=== PATIENT | female | born 1935 | race Caucasian/White ===

== ENCOUNTER 2021-06-09 08:46 | Emergency (ER) | payer MEDICARE ==
[~2021-06-09 08:46] MED LIST: HYDROCODON-ACE1 EAC6 PO
[2021-06-11] MEDS ORDERED: HCTZ12.5 MG PO (11:43)
[2021-06-11] MEDS ORDERED: COZAAR50 MG PO (11:43)
[2021-06-11] MEDS ORDERED: PLAVIX75 MG PO (11:44)
[2021-06-11] MEDS ORDERED: ASPIRIN EC81 MG PO (11:44)
[2021-06-11] MEDS ORDERED: PHOSLO667 MG PO (11:45)
[2021-06-11] MEDS ORDERED: MAXIMUM DAILY1 EAC1 PO (11:45)
[2021-06-11] MEDS ORDERED: [UNRECOGNIZED DRUG - OTHER] (11:47)
[2021-06-11] MEDS ORDERED: HYDREA500 MG PO (11:48)
[2021-06-11] MEDS ORDERED: XYZAL2.5 MG/5 M PO (11:48)
[2021-06-11] MEDS ORDERED: IBUPROFEN400 MG PO (11:49)
[2021-06-11] MEDS ORDERED: VICODIN 10/3251 EACH PO (11:49)
[2021-06-11] MEDS ORDERED: SENOKOT8.6 MG PO (11:50)
== END 2021-06-09 12:07 | disposition home or self-care (01) ==
LOC: FER 08:46
DX: G89.11 Acute pain due to trauma (principal)

== ENCOUNTER → 2021-06-11 | Day surgery (SDC) | payer MEDICARE ==
[~2021-06-11] VITALS: Ht 162.6 cm; Wt 61.2 kg
[~2021-06-11] MED LIST changes: +ASPIRIN EC81 MG PO; +COZAAR50 MG PO; +HCTZ12.5 MG PO; +HYDREA500 MG PO; +IBUPROFEN400 MG PO; +MAXIMUM DAILY1 EAC1 PO; +PHOSLO667 MG PO; +PLAVIX75 MG PO; +SENOKOT8.6 MG PO; +VICODIN 10/3251 EACH PO; +XYZAL2.5 MG/5 M PO; +[UNRECOGNIZED DRUG - OTHER]
[2021-06-11 12:09] LABS: HCT 32.3 % (37.0-47.0); HGB 10.6 g/dl (12.5-16.0); MCH 34.4 pg (25.0-31.0); MCHC 32.8 g/dL (32.0-36.0); MCV 104.9 fL (78.0-100.0); RBC 3.08 M/uL (4.20-5.40); RDW 13.8 % (11.5-14.0); WBC 8.6 K/uL (4.0-10.5)
[2021-06-11 14:16] LABS: ALBUMIN 2.3 g/dL (3.4-5.0); BILIRUBIN - TOTAL 0.5 mg/dL (0.2-1.0); BUN/CREAT RATIO (CALC) 32.8 RATIO; CREATININE 0.61 mg/dL (0.51-0.95); GLOBULIN (CALCULATION) 2.6 g/dL; POTASSIUM 3.5 mmol/L (3.5-5.1); TOTAL PROTEIN 4.9 g/dL (6.4-8.2)
== END | disposition home or self-care (01) ==
LOC: FAS 11:26
PROVIDERS: Legal Medicine
DX: S52.572A Other intraarticular fracture of lower end of left radius, initial encounter for closed fracture (principal); S52.202A Unspecified fracture of shaft of left ulna, initial encounter for closed fracture; G89.18 Other acute postprocedural pain; W19.XXXA Unspecified fall, initial encounter; I10 Essential (primary) hypertension; E78.5 Hyperlipidemia, unspecified; M19.90 Unspecified osteoarthritis, unspecified site; H91.92 Unspecified hearing loss, left ear; F17.200 Nicotine dependence, unspecified, uncomplicated; Z86.73 Personal history of transient ischemic attack (TIA), and cerebral infarction without residual deficits; Z20.822 Contact with and (suspected) exposure to COVID-19; Z88.8 Allergy status to other drugs, medicaments and biological substances; Z79.01 Long term (current) use of anticoagulants; Z79.82 Long term (current) use of aspirin; Z79.899 Other long term (current) drug therapy
CPT/HCPCS: 36415; 73100; 76000; 80053; C1713; J0690; J1100; J1170; J2370; J2405; J2704; J2795; J3010; J7120; U0002